=== PATIENT | male | born 1990 | race African-American/Black ===

== ENCOUNTER 2025-02-02 19:40 | Inpatient (IN) | payer OTHER ==
[~2025-02-02] VITALS: Ht 188 cm; Wt 98.9 kg
[2025-02-02] MEDS: SODIUM CHLORIDE 0.9% 1,000 ML IV ONE (01:00)
[2025-02-02] MEDS: PROPRANOLOL HCL 20 MG TAB PO ONE ×2 (01:40→01:44)
--- NOTE | 2025-02-02 20:02 | ED.PDOC ---
HPI Comments 34 year old male came to ER due ti chest pains. Patient has history of Graves disease last 2019, stopped taking methimazole last 2022. For the past month he has been having intermittent epiosdes of palpitations. He was at work earlier, at around 1pm when palpitations worsened, associated with chest pain and nearly had a syncopal attack REVIEW OF SYSTEMS: General: No fever, no chills, or fatigue HEENT: No sore throat, no earache, no congestion, no neck pain. Cardiac: (+) chest pain. (+) palpitations. (+) near syncope Lungs: No shortness of breath, no cough. GI: No nausea, no vomiting, no diarrhea, no constipation, no abdominal pain : No dysuria, frequency, or urgency. No hematuria. Musculoskeletal: No joint pain , no joint swelling, no extremity edema. Skin: No rash, no itching. Neuro: No headache, no dizziness, no weakness PHYSICAL EXAM: General: Awake, alert and oriented. No acute distress. Skin: Skin in warm, dry and intact. Appropriate color for ethnicity. HEENT: The head is normocephalic and atraumatic. Conjunctivae are clear without exudates or hemorrhage. Sclera is non-icteric. EOM are intact. No signs of nystagmus. Eyelids are normal in appearance without swelling or lesions. Oral mucosa is pink and moist Neck: The neck is supple with normal range of motion. No JVD. Cardiac: Heart rate and rhythm are normal. No murmurs, gallops, or rubs are auscultated. Respiratory: No signs of respiratory distress. Lung sounds are clear in all lobes bilaterally without rales, rhonchi, or wheezes. Abdominal: Abdomen is soft, non-tender without distention, guarding or rigidity. Bowel sounds are present and normoactive in all four quadrants. Extremities: Upper and lower extremities are atraumatic in appearance without deformity or edema. Neurological: The patient is awake, alert and oriented to person, place, and time with normal speech. Speech is clear. There is no facial asymmetry. Psychiatric: Appropriate mood and affect. Good judgement and insight. Chief Complaint: Chest Pain Time Seen by MD: 20:02 Reviewed Notes: Nurses Notes Allergies: Coded Allergies: NO KNOWN ALLERGIES (Unverified , 02/02/25) Information Source: Patient Mode of Arrival: Ambulatory Past Medical History PAST MEDICAL HISTORY: Thyroid (Graves disease) Surgical History: Denies all surgeries Family History Family History: Family hx of DM Social History Smoker: Non-Smoker Alcohol: Denies ETOH Use Drugs: Denies Drug Use Lives In: Home EKG EKG : Pulse Rate (adult): 116 Cardiac Rhythm: ST Hypertrophy: LAE Was a procedure done? Was a procedure done?: No CP Differential Dx Differential Diagnosis: Angina, Anxiety / Panic Attack, Electrolyte Disorder, Hyperthyroidism, Hyperventilation, Sinus Tachycardia X-Ray, Labs, Meds, VS Vital Signs Date Time Temp Pulse Resp B/P (MAP) Pulse Ox O2 Delivery O2 Flow Rate FiO2 02/02/25 23:36 98.1 108 16 153/74 (100) 97 98.1 02/02/25 22:55 109 02/02/25 21:01 105 02/02/25 20:02 116 02/02/25 19:43 98.1 116 18 146/88 99 98.1 02/02/25 01:44 103 120/54 02/02/25 01:40 107 120/57 Lab Test 02/02/25 22:52 02/02/25 19:57 Range/Units Troponin I High Sensitivity 137 *H 152 *H </=54 ng/L White Blood Count 14.0 H 4.4-10.8 10^3/uL Red Blood Count 4.78 4.5-5.90 10^6/uL Hemoglobin 13.4 L 13.5-17.5 g/dL Hematocrit 39.6 L 41.0-53.0 % Mean Corpuscular Volume 83.0 80.0-100.0 fL Mean Corpuscular Hemoglobin 28.0 28.0-32.0 pg Mean Corpuscular Hemoglobin Concent 33.8 32.0-36.0 g/dL Red Cell Distribution Width 12.0 11.8-14.3 % Platelet Count 262 140-450 10^3/uL Mean Platelet Volume 9.8 6.9-10.8 fL Neutrophils (%) (Auto) 65.7 37.0-80.0 % Lymphocytes (%) (Auto) 21.9 10.0-50.0 % Monocytes (%) (Auto) 11.7 0.0-12.0 % Eosinophils (%) (Auto) 0.4 0.0-7.0 % Basophils (%) (Auto) 0.3 0.0-2.0 % Neutrophils # (Auto) 9.2 H 1.6-8.6 10 ^3/uL Lymphocytes # (Auto) 3.1 0.4-5.4 10 ^3/uL Monocytes # (Auto) 1.6 H 0-1.3 10 ^3/uL Eosinophils # (Auto) 0.1 0-0.8 10 ^3/uL Basophils # (Auto) 0 0-0.2 10 ^3/uL Nucleated Red Blood Cells 0.2 % D-Dimer, Quantitative 0.34 0.0-0.49 mg/L FEU Sodium Level 139 136-145 mmol/L Potassium Level 3.9 3.5-5.1 mmol/L Chloride Level 103 98-107 mmol/L Carbon Dioxide Level 25 20-31 mmol/L Anion Gap 11 5-15 Blood Urea Nitrogen 15 9-23 mg/dL Creatinine 1.17 0.700-1.30 mg/dL Glomerular Filtration Rate Calc 85 >90 mL/min BUN/Creatinine Ratio 12.8 10.0-20.0 Serum Glucose 88 74-106 mg/dL Calcium Level 9.9 8.7-10.4 mg/dL B-Type Natriuretic Peptide 15.05 0-100 pg/mL Thyroid Stimulating Hormone (TSH) 0.01 L 0.55-4.78 uIU/mL Free Thyroxine (T4) Calculated 5.36 H 0.89-1.76 ng/dL Total Triiodothyronine (TT3) 5.04 H 0.60-1.81 ng/mL Current Medications Medications (Trade) Dose Ordered Sig/Uday Route Start Time Stop Time Status Last Admin Sodium Chloride 1,000 ml @ 1,000 mls/hr Q1H ONCE IV 02/02/25 20:15 02/02/25 21:14 DC 02/02/25 01:00 Aspirin 324 mg ONCE ONCE PO 02/02/25 22:30 02/02/25 22:31 DC 02/02/25 01:50 PROCEDURE(s): CXR1 - CHEST XRAY 1 VIEW REASON: cp ORDER NUMBER(s): [id number], ACCESSION NUMBER(s): [id number] CLINICAL HISTORY: cp TECHNIQUE: Single view of the chest was obtained. COMPARISON: None FINDINGS: The heart size and pulmonary vasculature are normal. The lungs are clear. IMPRESSION: NO ACUTE CARDIOPULMONARY PROCESS. Time of 1ST Reevaluation: 19:58 Reevaluation 1ST: Unchanged Patient Education/Counseling: Need For Follow Up Family Education/Counseling: No Family Present SEPSIS Sepsis Screen Date sepsis recognized/suspect: Feb 02, 2025 Time Sepsis recognized/suspect: 1946 Recent Procedure: No On Antibiotic Therapy: No Respiratory Rate >20: No Heart Rate >90: No Temp<36 C (96.8 F) or >38.3 C: No SBP <90 or MAP <65 mmHG: No New Acute Mental Status Change: No Is the patient on CPAP, BIPAP,: No Physician Orders Urinalysis (02/02/25 20:00) Electrocardigram (02/02/25 20:01) Chest Xray 1 View (02/02/25 20:01) Vital Signs Q1HR (02/02/25 20:01) Saline Lock (02/02/25 20:01) Technical Expert (02/02/25 ) Vital Signs Date Time Temp Pulse Resp B/P (MAP) Pulse Ox O2 Delivery O2 Flow Rate FiO2 02/02/25 23:36 98.1 108 16 153/74 (100) 97 98.1 02/02/25 22:55 109 02/02/25 21:01 105 02/02/25 20:02 116 02/02/25 19:43 98.1 116 18 146/88 99 98.1 02/02/25 01:44 103 120/54 02/02/25 01:40 107 120/57 Laboratory Tests Test 02/02/25 19:57 White Blood Count 14.0 10^3/uL (4.4-10.8) H Medications Medications Dose Ordered Sig/Uday Route Start Time Stop Time Status Last Admin Dose Admin Aspirin 324 mg ONCE ONCE PO 02/02/25 22:30 02/02/25 22:31 DC 02/02/25 01:50 Sodium Chloride 1,000 ml @ 1,000 mls/hr Q1H ONCE IV 02/02/25 20:15 02/02/25 21:14 DC 02/02/25 01:00 Departure 1 Departure Time of Disposition: 22:30 Impression: Primary Impression: Chest pain Additional Impressions: Elevated troponin Palpitations Disposition: ADMITTED INPATIENT Condition: Stable Comments 34-year-old male with a palpitations, chest pain History of Graves disease Troponin elevated Patient is stabilized in the ED. Patient admitted to hospitalist service for further treatment, evaluation and monitoring. Critical Care Note Critical Care Time?: Yes (35 min-critical care time only) Critical care comment: palpitations Stability Stability form required: No Heart Score Heart Score: Heart Score Response (Comments) Value History Moderate Suspicious 1 EKG Repolarization Disturb 1 Age <45 0 Risk Factors No known risk factors 0 Troponin Normal limit 0 Total 2 I personally scribed for JI VAZQUEZ MD ([email or web address]) on 02/02/25 at 20:02. Electronically submitted by Remigio Gonzales ([email or web address]). I personally scribed for JI VAZQUEZ MD ([email or web address]) on 02/02/25 at 20:52. Electronically submitted by Remigio Gonzales ([email or web address]). JI VAZQUEZ MD Feb 02, 2025 20:02
[2025-02-02 20:21] LABS: Hematocrit 39.6 % (41.0-53.0); Hemoglobin 13.4 g/dL (13.5-17.5); Mean Corpuscular Hemoglobin 28.0 pg (28.0-32.0); Mean Corpuscular Volume 83.0 fL (80.0-100.0); Nucleated Red Blood Cells % 0.2 %
[2025-02-02 20:25] LABS: Chloride 103 mmol/L (98-107); Potassium 3.9 mmol/L (3.5-5.1); Sodium 139 mmol/L (136-145)
[2025-02-02 20:26] LABS: Anion Gap 11 (5-15); Calcium 9.9 mg/dL (8.7-10.4); Carbon Dioxide 25 mmol/L (20-31)
[2025-02-02 20:31] LABS: BUN/Creatinine Ratio 12.8 (10.0-20.0); Blood Urea Nitrogen 15 mg/dL (9-23); Glucose 88 mg/dL (74-106)
--- NOTE | 2025-02-02 20:44 | DVH ---
CLINICAL HISTORY: cp TECHNIQUE: Single view of the chest was obtained. COMPARISON: None FINDINGS: The heart size and pulmonary vasculature are normal. The lungs are clear. IMPRESSION: NO ACUTE CARDIOPULMONARY PROCESS.
[2025-02-02] MEDS ORDERED: NITROGLYCERIN 0.4 MG SL TAB SL PRN (23:45)
[2025-02-02] MEDS ORDERED: ONDANSETRON HCL 4 MG/2 ML VIAL IV PRN (23:45)
[2025-02-03] VITALS (11 sets, daily range): BP systolic 129–145; BP diastolic 58–79; PULSE 98–110; RESP 16–20; TEMP 97.6–98.8; O2SAT 97–100
[2025-02-03 00:14] LABS: Free T4 (Free Thyroxine) 5.36 ng/dL (0.89-1.76)
--- NOTE | 2025-02-03 00:15 | DVHHPRES ---
History of Present Illness Resident Creating Document: VENTURA KABA History of Present Illness Patient is a 34-year-old male, with past medical history of Graves disease (diagnosed in 2019, discontinued methimazole in 2022), presented to [facility] ED with complaint of chest pain and palpitations. Chest pain began on December 20, described as sharp, intermittent, rated 8/10 in intensity, and improves with rest. Patient reports several months of intermittent palpitations and chest discomfort, which have worsened over the past few days. Earlier today around 1 PM, while working outdoors in [place] under hot weather conditions, he experienced a sudden episode of heart racing and near-syncope, accompanied by chest pain. On evaluation in the ED, patient is afebrile, blood pressure is 146/88 mmHg. Initial labs show Troponin 152 and TSH 0.01. EKG shows sinus tachycardia. Chest X-ray shows no acute cardiopulmonary process . Patient is admitted for further evaluation and management. Endocrine: Hyperthyroidism Past Surgical History: None Family History: None Smoke: No ALCOHOL: none Drugs: None Review of Systems Review of Systems Eyes: No Pain, No Vision change, No Conjunctivae inflammation, No Eyelid inflammation, No Other, No Redness ENT: No Ear pain, No Ear discharge, No Nose pain, No Nose discharge, No Nose congestion, No Mouth pain, No Mouth swelling, No Throat pain, No Throat swelling, No Other Cardiovascular: Chest Pain, Palpitations, No Orthopnea, No Paroxysmal No Dyspnea, No Edema, No Lt Headedness, No Other Respiratory: No Cough, No Dry, No Shortness of breath, No SOB with exertion, No Wheezing, No Hemoptysis, No Pleuritic Pain, No Sputum, No Other Gastrointestinal: No Nausea, No Vomiting, No Abdominal Pain, No Diarrhea, No Constipation, No Melena, No Hematochezia, No Other Genitourinary: No Dysuria, No Frequency, No Incontinence, No Hematuria, No Retention, No Other Musculoskeletal: No other, No neck pain, No shoulder pain, No arm pain, No back pain, No hand pain, No leg pain, No foot pain Skin: No Rash, No Lesions, No Jaundice, No Bruising, No Other Allergies: Coded Allergies: NO KNOWN ALLERGIES (Unverified , 02/02/25) Medications Current Medications Medications Dose Ordered Sig/Uday Route Start Time Stop Time Status Last Admin Dose Admin Sodium Chloride 10 ml Q8HR IV 02/03/25 06:00 Ondansetron HCl 4 mg Q4HP PRN IV 02/02/25 23:45 Nitroglycerin 0.4 mg Q5MINP PRN SL 02/02/25 23:45 Propranolol HCl 20 mg BID PO 02/03/25 10:00 Exam Vital Signs Vital Signs Date Time Temp Pulse Resp B/P (MAP) Pulse Ox O2 Delivery O2 Flow Rate FiO2 02/02/25 23:36 98.1 108 16 153/74 (100) 97 98.1 Exam General Appearance: Cooperative. Well developed. Well nourished. NAD Head Exam: Normal inspection Neck Exam: Normal inspection. Non-tender. Normal alignment Pulmonary/Respiratory: Chest non-tender. Clear bilateral breath sounds, no crackles, no wheezing. Cardiovascular/Chest: Regular rate and rhythm. No murmurs. No JVD. Peripheral Pulses: 2+ Radial (R). 2+ Radial (L). 2+ Pedal (R). 2+ Pedal (L) Abdominal Exam: Normal bowel sounds. Soft. normal abdomen, no visible veins, Nontender. No hepatospenomegaly. No masses Ankle Exam: Negative ankle edema Lower extremities: Negative lower extremity edema Neuro/Mental Status: A&O x4. Coherent. Thoughts/Psych: Normal thought pattern. Appropriate mood and affect. Good judgement and insight Skin Exam: Normal inspection. Normal color. Warm. Dry Labs/Xrays Labs Test 02/02/25 23:43 02/02/25 19:57 Range/Units White Blood Count 14.0 H 4.4-10.8 10^3/uL Red Blood Count 4.78 4.5-5.90 10^6/uL Hemoglobin 13.4 L 13.5-17.5 g/dL Hematocrit 39.6 L 41.0-53.0 % Mean Corpuscular Volume 83.0 80.0-100.0 fL Mean Corpuscular Hemoglobin 28.0 28.0-32.0 pg Mean Corpuscular Hemoglobin Concent 33.8 32.0-36.0 g/dL Red Cell Distribution Width 12.0 11.8-14.3 % Platelet Count 262 140-450 10^3/uL Mean Platelet Volume 9.8 6.9-10.8 fL Neutrophils (%) (Auto) 65.7 37.0-80.0 % Lymphocytes (%) (Auto) 21.9 10.0-50.0 % Monocytes (%) (Auto) 11.7 0.0-12.0 % Eosinophils (%) (Auto) 0.4 0.0-7.0 % Basophils (%) (Auto) 0.3 0.0-2.0 % Neutrophils # (Auto) 9.2 H 1.6-8.6 10 ^3/uL Lymphocytes # (Auto) 3.1 0.4-5.4 10 ^3/uL Monocytes # (Auto) 1.6 H 0-1.3 10 ^3/uL Eosinophils # (Auto) 0.1 0-0.8 10 ^3/uL Basophils # (Auto) 0 0-0.2 10 ^3/uL Nucleated Red Blood Cells 0.2 % D-Dimer, Quantitative 0.34 0.0-0.49 mg/L FEU Sodium Level 139 136-145 mmol/L Potassium Level 3.9 3.5-5.1 mmol/L Chloride Level 103 98-107 mmol/L Carbon Dioxide Level 25 20-31 mmol/L Anion Gap 11 5-15 Blood Urea Nitrogen 15 9-23 mg/dL Creatinine 1.17 0.700-1.30 mg/dL Glomerular Filtration Rate Calc 85 >90 mL/min BUN/Creatinine Ratio 12.8 10.0-20.0 Serum Glucose 88 74-106 mg/dL Calcium Level 9.9 8.7-10.4 mg/dL B-Type Natriuretic Peptide 15.05 0-100 pg/mL Thyroid Stimulating Hormone (TSH) 0.01 L 0.55-4.78 uIU/mL SEPSIS Sepsis Screen Date sepsis recognized/suspect: Feb 02, 2025 Time Sepsis recognized/suspect: 1946 Recent Procedure: No On Antibiotic Therapy: No Respiratory Rate >20: No Heart Rate >90: No Temp<36 C (96.8 F) or >38.3 C: No SBP <90 or MAP <65 mmHG: No New Acute Mental Status Change: No Is the patient on CPAP, BIPAP,: No Physician Orders Urinalysis (02/02/25 20:00) Electrocardigram (02/02/25 20:01) Chest Xray 1 View (02/02/25 20:01) Vital Signs Q1HR (02/02/25 20:01) Saline Lock (02/02/25 20:01) Nuclear Physics Teacher (02/02/25 ) Troponin-I Hs (02/02/25 23:22) Troponin-I Hs (02/03/25 01:22) Admit (02/02/25 23:40) Allergies (02/02/25 23:40) Code Status (02/02/25 23:40) Sodium Chloride Lock (Saline Lock Ns) (02/03/25 06:00) Ondansetron Hcl (Zofran) (02/02/25 23:45) Complete Blood Count (02/03/25 04:00) Comprehensive Metabolic Panel (02/03/25 04:00) Cardiac Diet-2gna,Lofat,Lochol (02/03/25 Breakfast) Echo 2d Mode Cardiac Dop (02/02/25 23:40) Condition: Fair (02/02/25 23:40) Nitroglycerin Sublingual (Ntrostat Subli (02/02/25 23:45) Stat Ekg For Chest Pain (02/02/25 23:40) Notify Md Of Changes From Base (02/02/25 23:40) Double End Tenoner Setter For 24 Hours (02/02/25 23:40) Emergency Dysrhythmia Protocol (02/02/25 23:40) Rhythm Strips Once Every Shift (02/02/25 23:40) Free T4 (Free Thyroxine) (02/02/25 23:40) T3 Total (02/02/25 23:40) Propranolol Hcl Tablet (Inderal Tablet) (02/03/25 10:00) Drug Screen (02/03/25 00:07) Aspirin Tablet (02/03/25 10:00) Atorvastatin (Lipitor) (02/03/25 00:15) Atorvastatin (Lipitor) (02/03/25 22:00) Lipid Panel (02/03/25 00:07) Magnesium (02/03/25 00:07) Hepatic Panel (02/03/25 00:07) Blood Culture (02/03/25 00:07) Thyrotropin Receptor Antibody (02/03/25 00:07) Vital Signs Date Time Temp Pulse Resp B/P (MAP) Pulse Ox O2 Delivery O2 Flow Rate FiO2 02/02/25 23:36 98.1 108 16 153/74 (100) 97 98.1 02/02/25 21:01 105 02/02/25 20:02 116 02/02/25 19:43 98.1 116 18 146/88 99 98.1 Laboratory Tests Test 02/02/25 19:57 White Blood Count 14.0 10^3/uL (4.4-10.8) H Assessment/Plan Assessment/Plan NSTEMI, likely type II Troponin level, downtrending 152 -> 137 EKG: Sinus tachycardia BNP: 15.05 D-dimer normal Chest X-ray: no acute cardiopulmonary process Echocardiogram pending Magnesium pending Lipid panel Hepatic panel nitroglycerin sublingual 0.4 mg Zofran 4 mg IV q4h Saline 10 ML IV q8h Aspirin 81 MG p.o. Atorvastatin 40 mg p.o. Graves disease Hyperthyroidism, uncontrolled TSH 0.01 Total T3, Free T4 pending Methimazole 5 mg p.o. daily Propranolol 20 mg p.o. b.i.d. Blood culture Urine culture Thyrotropin receptor antibody ordered Diet: Cardiac Goals of care: Full code, discussed for >16 minutes on 02/03/25 Plan discussed with patient Plan discussed with Dr. Pike Plan discussed with: Patient, Other (RN) My Orders Orders - VENTURA KABA Procedure Category Date Status Time Admit ADMIT 02/02/25 Transmitted 23:40 Allergies LIYAH 02/02/25 In Process 23:40 Code Status CODE 02/02/25 Transmitted 23:40 Sodium Chloride Lock PHA 02/03/25 In Process (Saline Lock Ns) 06:00 Ondansetron Hcl PHA 02/02/25 In Process (Zofran) 23:45 Complete Blood Count LAB 02/03/25 Logged 04:00 Comprehensive LAB 02/03/25 Logged Metabolic Panel 04:00 Cardiac DIET 02/03/25 Transmitted Diet-2gna,Lofat,Lochol Breakfast Echo 2d Mode Cardiac US 02/02/25 Logged DOP 23:40 Condition: Fair LIYAH 02/02/25 In Process 23:40 Nitroglycerin PHA 02/02/25 In Process Sublingual (Ntrostat 23:45 Stat Ekg For Chest LIYAH 02/02/25 In Process Pain 23:40 Notify Of Changes LIYAH 02/02/25 In Process From Base 23:40 Double End Tenoner Setter For LIYAH 02/02/25 In Process 24 Hours 23:40 Emergency Dysrhythmia LIYAH 02/02/25 In Process Protocol 23:40 Rhythm Strips Once LIYAH 02/02/25 In Process Every Shift 23:40 Free T4 (Free LAB 02/02/25 In Process Thyroxine) 23:40 T3 Total LAB 02/02/25 In Process 23:40 Propranolol Hcl PHA 02/03/25 In Process Tablet (Inderal 10:00 Drug Screen LAB 02/03/25 Transmitted 00:07 Aspirin Tablet PHA 02/03/25 Transmitted 10:00 Atorvastatin (Lipitor) PHA 02/03/25 Transmitted 00:15 Atorvastatin (Lipitor) PHA 02/03/25 Transmitted 22:00 Lipid Panel LAB 02/03/25 Transmitted 00:07 Magnesium LAB 02/03/25 Transmitted 00:07 Hepatic Panel LAB 02/03/25 Transmitted 00:07 Blood Culture BELLE 02/03/25 Transmitted 00:07 Thyrotropin Receptor LAB 02/03/25 Transmitted Antibody 00:07 Date of Service: Feb 03, 2025 Billing Provider: DONY PIKE MD Common Visit Codes: [id number] INP/OBS CARE (HIGH) VENTURA KABA RESIDENT Feb 03, 2025 00:15
[2025-02-03 01:40] LABS: Albumin 4.3 g/dL (3.2-4.8); Alkaline Phosphatase 109.0 U/L (46-116); Magnesium 1.9 mg/dL (1.6-2.6); Total Protein 7.1 g/dL (5.7-8.2); Triglycerides 104.0 mg/dL (< 150)
[2025-02-03 01:41] LABS: Bilirubin, Total 1.1 mg/dL (0.2-1.0); Cholesterol 97.0 mg/dL (< 200)
[2025-02-03 01:45] LABS: Alanine Aminotransferase 67.0 U/L (7-40); Bilirubin, Direct 0.4 mg/dL (<0.3); HDL Cholesterol 37.0 mg/dL (40-59)
[2025-02-03] MEDS: ATORVASTATIN 20 MG TAB PO ONE (01:50)
[2025-02-03] MEDS: methIMAzole 5 MG TAB PO ONE (02:31)
[2025-02-03 03:58] LABS: Urine Protein, UAD Negative (Negative)
[2025-02-03 04:00] LABS: Amphetamine Screen, Urine Neg (NEGATIVE); Barbiturate Scree,Urine Neg (NEGATIVE); Benzodiazephine Screen, Urine Neg (NEGATIVE); Cannabinoid Screen, Urine Neg (NEGATIVE); Cocaine Screen, Urine Neg (NEGATIVE); Opiate Scree,Urine Neg (NEGATIVE); Phencyclidine Screen, Urine Neg (NEGATIVE)
[2025-02-03 04:58] LABS: Albumin 3.7 g/dL (3.2-4.8); Alkaline Phosphatase 105 U/L (46-116); Anion Gap 9 (5-15); BUN/Creatinine Ratio 15.4 (10.0-20.0); Bilirubin, Total 1.0 mg/dL (0.2-1.0); Blood Urea Nitrogen 16 mg/dL (9-23); Calcium 9.4 mg/dL (8.7-10.4); Carbon Dioxide 26 mmol/L (20-31); Chloride 105 mmol/L (98-107); Glucose 102 mg/dL (74-106); Potassium 4.1 mmol/L (3.5-5.1); Sodium 140 mmol/L (136-145); Total Protein 6.3 g/dL (5.7-8.2)
[2025-02-03 05:00] LABS: Hematocrit 38.5 % (41.0-53.0); Hemoglobin 12.9 g/dL (13.5-17.5); Mean Corpuscular Hemoglobin 28.1 pg (28.0-32.0); Mean Corpuscular Volume 83.9 fL (80.0-100.0); Nucleated Red Blood Cells % 0.1 %
[2025-02-03 05:07] LABS: Alanine Aminotransferase 59 U/L (7-40)
[2025-02-03] MEDS: SODIUM CHLOR 0.9% PF (SALINE LOCK) 10ML VIAL/SYR IV SCH (05:47)
[2025-02-03] MEDS: PROPRANOLOL HCL 20 MG TAB PO SCH ×2 (09:03→21:49)
--- NOTE | 2025-02-03 09:27 | DVH ---
INDICATION: transaminitis TECHNIQUE: Multiple real-time sonographic images were obtained of the right upper quadrant. COMPARISON: None FINDINGS: The liver demonstrates homogenous echotexture without focal mass lesions. The liver measure s 15 cm. There is no intrahepatic or extrahepatic ductal dilatation. The common duct measures 0.4 mm. The gallbladder is without evidence of stone or sludge. The gallbladder wall measures 0.3mm and is within normal limits. The right kidney measures 10 cm. The right kidney is normal in contour, size, and shape. The echog enicity is normal. There is no hydronephrosis. The pancreas is not well visualized due to overlying bowel gas. IMPRESSION: No sonographic evidence of gallstones or acute cholecystitis.
[2025-02-03] MEDS: methIMAzole 5 MG TAB PO SCH ×2 (10:48→16:13)
[2025-02-03 12:07] LABS: Hepatitis B Surface Antigen Negative (Negative); Hepatitis C Antibody Negative (Negative)
--- NOTE | 2025-02-03 14:39 | DVHPNRES ---
Progress Note Date Seen: Feb 03, 2025 Resident Creating Document: DONTE CALDWELL RESIDENT Medical Necessity Reason Pt with a Central, PICC or Fol: No Subjective Review of Systems Brief history on admission: This is a 34-year-old male, with past medical history of Graves disease (diagnosed in 2019, discontinued methimazole in 2022), presented to [facility] ED with complaint of chest pain and palpitations. Chest pain began on December 20, described as sharp, intermittent, rated 8/10 in intensity, and improves with rest. Patient reports several months of intermittent palpitations and chest discomfort, which have worsened over the past few days. His symptoms exacerbated while working outdoors in [place] under hot weather conditions, he experienced a sudden episode of heart racing and near-syncope, accompanied by chest pain. On evaluation in the ED, patient is afebrile, blood pressure is 146/88 mmHg. Initial labs show Troponin 152 and TSH 0.01. EKG shows sinus tachycardia. Chest X-ray shows no acute cardiopulmonary process . Patient is admitted for further evaluation and management. PMHx: Hyperthyroidism PSHx: No significant surgical history Social history: Denies smoking, alcohol, recreational drug use. Full code. Home medication: None Allergic history: No known allergies ROS: Constitutional: Denies weight loss, fever and chills. HEENT: Denies changes in vision and hearing. Respiratory: Denies shortness of breath and cough Cardiovascular: Chest pain, palpitations GI: Denies abdominal pain, nausea, vomiting and diarrhea. : Denies dysuria and urinary frequency. Musculoskeletal: Denies myalgias and joint pain Skin: Denies rash and pruritus. Neurological: Denies dizziness, headache, vision or hearing problems 02/03/2025: Patient was examined at bedside today. Patient has sinus tachycardia, currently being monitored on telemetry. Objective vital signs Vital Sign Date Time Temp Pulse Resp B/P (MAP) Pulse Ox O2 Delivery O2 Flow Rate FiO2 02/03/25 12:53 98.5 101 18 130/64 (86) 98 98.5 02/03/25 02:36 Room Air* 0 21 Total Intake and Output 02/02/25 02/02/25 02/03/25 15:00 23:00 07:00 Intake Total 200 ml Balance 200 ml medications Current Medications Medications Dose Ordered Sig/Uday Route Start Time Stop Time Status Last Admin Dose Admin Sodium Chloride 10 ml Q8HR IV 02/03/25 06:00 02/03/25 05:47 10 ML Ondansetron HCl 4 mg Q4HP PRN IV 02/02/25 23:45 Nitroglycerin 0.4 mg Q5MINP PRN SL 02/02/25 23:45 Propranolol HCl 20 mg BID PO 02/03/25 10:00 02/03/25 09:03 20 MG Aspirin 81 mg DAILY PO 02/03/25 10:00 02/03/25 09:02 81 MG Atorvastatin Calcium 40 mg HS PO 02/03/25 22:00 Methimazole 10 mg TID PO 02/03/25 14:00 Examination General: Patient alert and oriented in person, place and time. Patient following commands. HEENT: Normocephalic, atraumatic, moist mucous membranes Respiratory/pulmonary: Clear lungs bilaterally, vesicular murmurs present in almost all lung patel, no associated crackles or wheezes. Cardiovascular: Tachycardia. Normal heart sounds S1 and S2 with no associated murmurs Abdomen: Abdomen nondistended, there is no pain to palpation in any of the abdominal quadrants, no palpable masses. Extremities: There is no peripheral edema present at the lower extremities. Peripheral Pulses: 3+ Radial (R). 3+ Radial (L). 3+ Dorsalis pedis (R). 3+ Dorsalis pedis(L) Skin: No rashes or pruritus, there is no sacral edema present at this time. Neurological: Intact cranial nerves with no focal neurologic deficits laboratory and microbiology Laboratory Tests 02/03/25 04:12 Test 02/03/25 04:12 Range/Units Serum Glucose 102 74-106 mg/dL Problem List/Assessment/Plan Problem List/Assessment/Plan Thyrotoxicosis, secondary to Graves disease BWPS score 5 TSH 0.01, high Total T3, Free T4 Methimazole 10 mg PO TID Propranolol 20 mg p.o. b.i.d. Blood culture, urine culture Thyrotropin receptor antibody pending NSTEMI, likely type II due to hypothyroidism Troponin level, downtrending 152 -> 137 EKG: Sinus tachycardia BNP: 15.05 D-dimer normal Chest X-ray: no acute cardiopulmonary process Echocardiogram pending Nitroglycerin sublingual 0.4 mg Zofran 4 mg IV q4h Aspirin 81 MG p.o. Atorvastatin 40 mg p.o. Transaminitis Low HDL Elevated T total bilirubin, ALT Liver ultrasound shows no acute abnormality Hepatitis panel negative DIET: Cardiac DVT PROPHYLAXIS: Ambulatory CODE STATUS: Goals of care discussed with patient at bedside for more than 16 minutes. Full code DISPOSITION: Telemetry This medical document was created using an electronic medical record system with [employer] direct computerized dictation system. Although this document has been carefully reviewed, there may still be some phonetic and typographical errors. These areas are purely typographical due to imperfections of the software programs, and do not reflect any compromise in the patient's medical care. Patient's status and plan discussed with the patient. Case discussed with Dr. Pretty Plan discussed with: Patient, Other (Nurses) My Orders My Orders Orders - DONTE CALDWELL Procedure Category Date Status Time LIVER US 02/03/25 Resulted 06:41 Date of Service: Feb 03, 2025 Billing Provider: AILIN PRETTY MD Common Visit Codes: [id number] INP/OBS CARE(HIGH) DONTE CALDWELL RESIDENT Feb 03, 2025 14:39
[2025-02-03] MEDS: ATORVASTATIN 20 MG TAB PO SCH (21:47)
[2025-02-04] VITALS (8 sets, daily range): BP systolic 107–147; BP diastolic 63–80; PULSE 86–102; RESP 18–20; TEMP 97.5–99; O2SAT 95–100
[2025-02-04 07:28] LABS: Hematocrit 39.6 % (41.0-53.0); Hemoglobin 13.5 g/dL (13.5-17.5); Mean Corpuscular Hemoglobin 28.4 pg (28.0-32.0); Mean Corpuscular Volume 83.1 fL (80.0-100.0); Nucleated Red Blood Cells % 0.1 %
[2025-02-04 07:51] LABS: Albumin 3.9 g/dL (3.2-4.8); Alkaline Phosphatase 111 U/L (46-116); Anion Gap 11 (5-15); BUN/Creatinine Ratio 8.8 (10.0-20.0); Blood Urea Nitrogen 9 mg/dL (9-23); Calcium 9.9 mg/dL (8.7-10.4); Carbon Dioxide 28 mmol/L (20-31); Chloride 103 mmol/L (98-107); Glucose 87 mg/dL (74-106); Potassium 3.8 mmol/L (3.5-5.1); Sodium 142 mmol/L (136-145)
[2025-02-04 07:52] LABS: Total Protein 6.7 g/dL (5.7-8.2)
[2025-02-04 07:54] LABS: Alanine Aminotransferase 63 U/L (7-40); Bilirubin, Total 1.3 mg/dL (0.2-1.0)
--- NOTE | 2025-02-04 09:16 | DVHINCON2 ---
Date of service: Feb 03, 2025 History of Present Illness 34yo M w/ hx of Graves' disease who presented to the hospital with chest pain and dyspnea. Patient remarks prior hx of Graves' disease diagnosed in 2019 at [facility] via his PCP. Had been maintained onMMI therapy for about 3 years and eventually discontinued to do biochemical and symptomatic remission. He states he was followed intermittently to monitor his TFTs. Upon presentation patient tachycardic to HR 100s, sinus rhythm. BP 146/88. Labs notable for trop 152, TSH 0.01. CXR neg. Past Medical History Problems Medical Problems: (1) Chest pain Status: Acute (2) Elevated troponin Status: Acute (3) Palpitations Status: Acute Past Surgical History Past Surgical History Medical Problems: (1) Chest pain Status: Acute (2) Elevated troponin Status: Acute (3) Palpitations Status: Acute Family History: Diabetes mellitus G8 BROTHER G8 BROTHER grandmother Allergies: Coded Allergies: NO KNOWN ALLERGIES (Unverified , 02/02/25) Current Medications Current Medications Medications (Trade) Dose Ordered Sig/Uday Route PRN Reason Start Time Stop Time Status Last Admin Propranolol HCl (Inderal Tablet) 20 mg BID PO 02/03/25 10:00 02/03/25 17:57 DC 02/03/25 09:03 Aspirin 81 mg DAILY PO 02/03/25 10:00 02/03/25 09:02 Atorvastatin Calcium (Lipitor) 40 mg HS PO 02/03/25 22:00 02/03/25 21:47 Methimazole (Tapazole) 5 mg DAILY PO 02/04/25 10:00 02/03/25 08:59 DC Methimazole (Tapazole) 20 mg DAILY PO 02/03/25 10:00 02/03/25 11:01 DC 02/03/25 10:48 Methimazole (Tapazole) 10 mg TID PO 02/03/25 14:00 02/04/25 05:40 Propranolol HCl (Inderal Tablet) 20 mg TID PO 02/03/25 22:00 02/04/25 05:39 Review of Systems Negative except that which is stated in HPI Vital Signs Vital Signs Date Time Temp Pulse Resp B/P (MAP) Pulse Ox O2 Delivery O2 Flow Rate FiO2 02/04/25 08:31 97.8 97 20 132/80 (97) 97 97.8 10/24/25 20:00 Room Air* 0 21 Physical Exam Gen - no acute distress HEENT - no thyromegaly CV - tachycardic, nl rhythm Resp - CTAB Ext - no edema Neuro - no tremors Labs/Diagnostic Data Labs Test 02/04/25 05:11 02/03/25 04:12 02/03/25 00:50 02/03/25 00:40 Range/Units White Blood Count 5.8 # 4.4-10.8 10^3/uL Red Blood Count 4.77 4.5-5.90 10^6/uL Hemoglobin 13.5 13.5-17.5 g/dL Hematocrit 39.6 L 41.0-53.0 % Mean Corpuscular Volume 83.1 80.0-100.0 fL Mean Corpuscular Hemoglobin 28.4 28.0-32.0 pg Mean Corpuscular Hemoglobin Concent 34.1 32.0-36.0 g/dL Red Cell Distribution Width 11.9 11.8-14.3 % Platelet Count 234 140-450 10^3/uL Mean Platelet Volume 10.2 6.9-10.8 fL Neutrophils (%) (Auto) 44.3 37.0-80.0 % Lymphocytes (%) (Auto) 39.4 10.0-50.0 % Monocytes (%) (Auto) 14.3 H 0.0-12.0 % Eosinophils (%) (Auto) 1.6 0.0-7.0 % Basophils (%) (Auto) 0.4 0.0-2.0 % Neutrophils # (Auto) 2.6 1.6-8.6 10 ^3/uL Lymphocytes # (Auto) 2.3 0.4-5.4 10 ^3/uL Monocytes # (Auto) 0.8 0-1.3 10 ^3/uL Eosinophils # (Auto) 0.1 0-0.8 10 ^3/uL Basophils # (Auto) 0 0-0.2 10 ^3/uL Nucleated Red Blood Cells 0.1 % Sodium Level 142 136-145 mmol/L Potassium Level 3.8 3.5-5.1 mmol/L Chloride Level 103 98-107 mmol/L Carbon Dioxide Level 28 20-31 mmol/L Anion Gap 11 5-15 Blood Urea Nitrogen 9 9-23 mg/dL Creatinine 1.02 0.700-1.30 mg/dL Glomerular Filtration Rate Calc 100 >90 mL/min BUN/Creatinine Ratio 8.8 L 10.0-20.0 Serum Glucose 87 74-106 mg/dL Calcium Level 9.9 8.7-10.4 mg/dL Total Bilirubin 1.3 H 0.2-1.0 mg/dL Aspartate Amino Transferase (AST) 29 13-40 U/L Alanine Aminotransferase (ALT) 63 H 7-40 U/L Alkaline Phosphatase 111 46-116 U/L Total Protein 6.7 5.7-8.2 g/dL Albumin 3.9 3.2-4.8 g/dL Free Thyroxine (T4) Calculated 4.74 H 0.89-1.76 ng/dL Hepatitis A IgM Antibody Negative Hepatitis B Surface Antigen Negative Negative Hepatitis B Core IgM Antibody Negative Negative Hepatitis C Antibody Negative Negative Magnesium Level 1.9 1.6-2.6 mg/dL Direct Bilirubin 0.4 H <0.3 mg/dL Triglycerides Level 104 < 150 mg/dL Cholesterol Level 97 < 200 mg/dL LDL Cholesterol 44 < 100 mg/dL HDL Cholesterol 37 L 40-59 mg/dL Thyrotropin Receptor Antibody 13.10 H 0.00-1.75 IU/L Urine Color Yellow Yellow Urine Clarity Clear Clear Urine pH 5.5 5.0-9.0 Urine Specific [place] 1.030 1.001-1.035 Urine Protein Negative Negative Urine Ketones Trace Negative Urine Blood Negative Negative /uL Urine Nitrite Negative Negative Urine Bilirubin Negative Negative Urine Urobilinogen Normal Negative mg/dL Urine Leukocyte Esterase Negative Negative /uL Urine RBC 4 0 - 3 /hpf Urine Microscopic WBC < 1 0-3 /HPF Urine Squamous Epithelial Cells None seen <5 /hpf Urine Calcium Oxalate Crystals Few None Seen Urine Bacteria None seen None Seen /hpf Urine Glucose Normal Normal mg/dL Urine Opiates Screen Neg NEGATIVE Urine Fentanyl Screen Neg NEGATIVE Urine Barbiturates Screen Neg NEGATIVE Urine Phencyclidine Screen Neg NEGATIVE Urine Amphetamines Screen Neg NEGATIVE Urine Benzodiazepines Screen Neg NEGATIVE Urine Cocaine Screen Neg NEGATIVE Urine Cannabinoids Screen Neg NEGATIVE Test 02/02/25 23:43 02/02/25 19:57 Range/Units Troponin I High Sensitivity 137 *H </=54 ng/L D-Dimer, Quantitative 0.34 0.0-0.49 mg/L FEU B-Type Natriuretic Peptide 15.05 0-100 pg/mL Thyroid Stimulating Hormone (TSH) 0.01 L 0.55-4.78 uIU/mL Total Triiodothyronine (TT3) 5.04 H 0.60-1.81 ng/mL Microbiology Date/Time Source Procedure Growth Status 02/03/25 00:55 Blood Blood Culture - Preliminary NO GROWTH AFTER 24 HOURS OF INCUBATION. Resulted Assessment # Graves' disease with thyrotoxicosis # Sinus tachycardia # Type II NSTEMI # HTN Hx of Graves' disease diagnosed reportedly in 2019 now relapsed with presentation of thyrotoxicosis without storm. - Methimazole 10mg tid - Propranolol 20mg tid - Free T4 daily - Follow up TRAb - Repeat TSH, free T4 in 4 weeks following discharge Plan discussed with: Patient LOGAN ENCARNACION MD Feb 04, 2025 09:16
[2025-02-04] MEDS ORDERED: methIMAzole 5 MG TAB PO SCH (10:00)
[2025-02-04] MEDS ORDERED: VANCOMYCIN PER PHARMACY 0 MG IV SCH (11:15)
[2025-02-04] MEDS ORDERED: VANCOMYCIN 1GM/250ML KIT 250 ML IV ONE (11:15)
[2025-02-04] MEDS: VANCOMYCIN 1GM/250ML KIT 250 ML IV SCH (12:06)
--- NOTE | 2025-02-04 13:55 | DVHSR ---
APPROVED REPORT EXAM: Two-dimensional and M-mode echocardiogram with Doppler and color Doppler. Blood Pressure: 132/80 mmHg INDICATION Chest Pain RISK FACTORS Height: 6' 2", Weight: 221 DIMENSIONS LVDd4.3 (3.8-5.7cm)LA (2D)4.0 (1.9-4.0cm)Aortic Root2.9 (2.0-3.7cm) LVDs3.1 (2.5-4.0cm)LA (MM) (1.9-4.0cm)Aortic Cusp Exc1.7 (1.5-2.0cm) EF (%) 56.0 (55-70%)Rt. Atrium3.8 (1.9-4.0cm)Asc. Aorta cm IVSd1.1 (0.7-1.1cm)RV (D) (1.8-2.4cm) PWd1.1 (0.7-1.1cm) Mitral Valve MitralMitral Stenosis E wave1.10m/sMV Mean GR.mmHg A wave1.00m/sMV Peak GR.mmHg E/A ratio1.12D MVAcm2 Aortic Valve Aortic ValveAortic Stenosis V11.10m/Leonor Mean GR.4mmHg V21.40m/Leonor Peak GR.8mmHg LVOT Diameter2.3 (1.8-2.4cm)Doppler AVA3.26cm2 Pulmonic Valve V21.10m/s Tricuspid Valve TR Velocity1.60m/s [id number] Conclusion lvef 60% normal rv function normal atria no severe valve abnormalities noted mild MVP, trace to mild mitral regug
--- NOTE | 2025-02-04 15:40 | DVHPNRES ---
Progress Note Date Seen: Feb 04, 2025 Resident Creating Document: ADAMA OLIVEROS RESIDENT Medical Necessity Reason Pt with a Central, PICC or Fol: No Subjective Review of Systems Patient was seen at bedside. No new complaints. Blood culture shows Gram- positive cocci in clusters. This is a 34-year-old male, with past medical history of Graves disease (diagnosed in 2019, discontinued methimazole in 2022), presented to [facility] ED with complaint of chest pain and palpitations. Chest pain began on December 20, described as sharp, intermittent, rated 8/10 in intensity, and improves with rest. Patient reports several months of intermittent palpitations and chest discomfort, which have worsened over the past few days. His symptoms exacerbated while working outdoors in [place] under hot weather conditions, he experienced a sudden episode of heart racing and near-syncope, accompanied by chest pain. On evaluation in the ED, patient is afebrile, blood pressure is 146/88 mmHg. Initial labs show Troponin 152 and TSH 0.01. EKG shows sinus tachycardia. Chest X-ray shows no acute cardiopulmonary process . Patient is admitted for further evaluation and management. PMHx: Hyperthyroidism PSHx: No significant surgical history Social history: Denies smoking, alcohol, recreational drug use. Full code. Home medication: None Allergic history: No known allergies ROS: Constitutional: Denies weight loss, fever and chills. HEENT: Denies changes in vision and hearing. Respiratory: Denies shortness of breath and cough Cardiovascular: Chest pain, palpitations GI: Denies abdominal pain, nausea, vomiting and diarrhea. : Denies dysuria and urinary frequency. Musculoskeletal: Denies myalgias and joint pain Skin: Denies rash and pruritus. Neurological: Denies dizziness, headache, vision or hearing problems Objective vital signs Vital Sign Date Time Temp Pulse Resp B/P (MAP) Pulse Ox O2 Delivery O2 Flow Rate FiO2 02/04/25 13:00 99.0 93 18 146/78 (100) 98 99.0 02/04/25 08:00 Room Air* 0 21 Total Intake and Output 02/03/25 02/03/25 02/04/25 15:00 23:00 07:00 Intake Total 775 ml 700 ml Balance 775 ml 700 ml medications Current Medications Medications Dose Ordered Sig/Uday Route Start Time Stop Time Status Last Admin Dose Admin Sodium Chloride 10 ml Q8HR IV 02/03/25 06:00 02/04/25 05:39 10 ML Ondansetron HCl 4 mg Q4HP PRN IV 02/02/25 23:45 Nitroglycerin 0.4 mg Q5MINP PRN SL 02/02/25 23:45 Aspirin 81 mg DAILY PO 02/03/25 10:00 02/04/25 09:45 81 MG Atorvastatin Calcium 40 mg HS PO 02/03/25 22:00 02/03/25 21:47 40 MG Methimazole 10 mg TID PO 02/03/25 14:00 02/04/25 05:40 10 MG Propranolol HCl 20 mg TID PO 02/03/25 22:00 02/04/25 05:39 20 MG Vancomycin HCl 0 ml @ 0 mls/hr PER PHARMACY IV 02/04/25 11:15 Examination General: Patient alert and oriented in person, place and time. Patient following commands. HEENT: Normocephalic, atraumatic, moist mucous membranes Respiratory/pulmonary: Clear lungs bilaterally, vesicular murmurs present in almost all lung patel, no associated crackles or wheezes. Cardiovascular: Tachycardia. Normal heart sounds S1 and S2 with no associated murmurs Abdomen: Abdomen nondistended, there is no pain to palpation in any of the abdominal quadrants, no palpable masses. Extremities: There is no peripheral edema present at the lower extremities. Peripheral Pulses: 3+ Radial (R). 3+ Radial (L). 3+ Dorsalis pedis (R). 3+ Dorsalis pedis(L) Skin: No rashes or pruritus, there is no sacral edema present at this time. Neurological: Intact cranial nerves with no focal neurologic deficits laboratory and microbiology Laboratory Tests 02/04/25 05:11 Test 02/04/25 05:11 Range/Units Serum Glucose 87 74-106 mg/dL Microbiology Date/Time Source Procedure Growth Status 02/03/25 00:55 Blood Blood Culture - Preliminary NO GROWTH AFTER 24 HOURS OF INCUBATION. Resulted Problem List/Assessment/Plan Problem List/Assessment/Plan Assessment and plan Thyrotoxicosis, secondary to Graves disease BWPS score 5 TSH 0.01, high Total T3, Free T4 Methimazole 10 mg PO TID Propranolol 20 mg p.o. b.i.d. Blood culture, urine culture Thyrotropin receptor antibody pending NSTEMI, likely type II due to hypothyroidism Troponin level, downtrending 152 -> 137 EKG: Sinus tachycardia BNP: 15.05 D-dimer normal Chest X-ray: no acute cardiopulmonary process Echocardiogram pending Nitroglycerin sublingual 0.4 mg Zofran 4 mg IV q4h Aspirin 81 MG p.o. Atorvastatin 40 mg p.o. Transaminitis Low HDL Elevated T total bilirubin, ALT Liver ultrasound shows no acute abnormality Hepatitis panel negative Bacteremia, source unidentified IV vancomycin Echo MRSA nares DIET: Cardiac DVT PROPHYLAXIS: Ambulatory CODE STATUS: Goals of care discussed with patient at bedside for more than 16 minutes. Full code Patient's status and plan discussed with the patient. Case discussed with Dr. Pretty Plan discussed with: Patient Plan discussed with: Patient My Orders My Orders Orders - ADAMA OLIVEROS Procedure Category Date Status Time Vancomycin Per PHA 02/04/25 In Process Pharmacy 11:15 Complete Blood Count LAB 02/05/25 Verified 04:00 Creatinine LAB 02/05/25 Verified 04:00 Vancomycin,Random LAB 02/05/25 Verified 04:00 Date of Service: Feb 04, 2025 Billing Provider: AILIN PRETTY MD Common Visit Codes: [id number] INP/OBS CARE(HIGH) ADAMA OLIVEROS Feb 04, 2025 15:40
[2025-02-05] VITALS (8 sets, daily range): BP systolic 122–156; BP diastolic 58–84; PULSE 76–103; RESP 18–20; TEMP 97.5–98.9; O2SAT 97–98
[2025-02-05 06:15] LABS: Hematocrit 47.8 % (41.0-53.0); Hemoglobin 16.4 g/dL (13.5-17.5); Mean Corpuscular Hemoglobin 28.3 pg (28.0-32.0); Mean Corpuscular Volume 82.5 fL (80.0-100.0); Nucleated Red Blood Cells % 0.2 %
[2025-02-05 07:13] LABS: Albumin 4.4 g/dL (3.2-4.8); Anion Gap 11 (5-15); BUN/Creatinine Ratio 16.5 (10.0-20.0); Blood Urea Nitrogen 18 mg/dL (9-23); Carbon Dioxide 28 mmol/L (20-31); Chloride 100 mmol/L (98-107); Glucose 93 mg/dL (74-106); Potassium 3.9 mmol/L (3.5-5.1); Sodium 139 mmol/L (136-145); Total Protein 7.3 g/dL (5.7-8.2)
[2025-02-05 07:17] LABS: Alanine Aminotransferase 63 U/L (7-40); Alkaline Phosphatase 137 U/L (46-116); Bilirubin, Total 1.5 mg/dL (0.2-1.0); Calcium 11.0 mg/dL (8.7-10.4); Lipase 100 U/L (12-53)
[2025-02-05] MEDS: VANCOMYCIN 1.25GM/250ML 250 ML IV SCH (10:43)
--- NOTE | 2025-02-05 12:04 | DVHPN2 ---
Progress Note - Dictate Date Seen: Feb 05, 2025 Medical Necessity Reason Pt with a Central, PICC or Fol: No Subjective Denies any acute symptoms or complaints. vital signs Vital Sign Date Time Temp Pulse Resp B/P (MAP) Pulse Ox O2 Delivery O2 Flow Rate FiO2 02/05/25 08:46 98.3 76 18 147/75 (99) 97 98.3 02/05/25 08:00 Room Air* 0 21 Total Intake and Output 02/04/25 02/04/25 02/05/25 15:00 23:00 07:00 Intake Total 250 ml 700 ml 600 ml Balance 250 ml 700 ml 600 ml medications Current Medications Medications Dose Ordered Sig/Uday Route Start Time Stop Time Status Last Admin Dose Admin Sodium Chloride 10 ml Q8HR IV 02/03/25 06:00 02/05/25 05:36 10 ML Ondansetron HCl 4 mg Q4HP PRN IV 02/02/25 23:45 Nitroglycerin 0.4 mg Q5MINP PRN SL 02/02/25 23:45 Aspirin 81 mg DAILY PO 02/03/25 10:00 02/05/25 09:32 81 MG Atorvastatin Calcium 40 mg HS PO 02/03/25 22:00 02/04/25 21:13 40 MG Methimazole 10 mg TID PO 02/03/25 14:00 02/05/25 05:33 10 MG Propranolol HCl 20 mg TID PO 02/03/25 22:00 02/05/25 05:34 20 MG Vancomycin HCl 0 ml @ 0 mls/hr PER PHARMACY IV 02/04/25 11:15 Vancomycin HCl 250 ml @ 200 mls/hr Q12H IV 02/05/25 11:00 02/05/25 10:43 200 MLS/HR objective Gen - no acute distress HEENT - no thyromegaly CV - RRR, no m/r/g Resp - CTAB Ext - no edema laboratory and microbiology Laboratory Tests 02/05/25 05:33 Test 02/05/25 05:33 Range/Units Serum Glucose 93 74-106 mg/dL Assessment/Plan # Graves' disease with thyrotoxicosis # Sinus tachycardia # Type II NSTEMI # HTN # Coag negative staph - 1/2 bottles, consider contamination > pathologic infection Hx of Graves' disease diagnosed reportedly in 2019 now relapsed with presentation of thyrotoxicosis without storm. - Methimazole 10mg tid - Propranolol decrease to 10mg tid. - Free T4 daily - Follow up TRAb - Repeat TSH, free T4 in 4 weeks following discharge - Plan discussed with: Other (nurse) LOGAN ENCARNACION MD Feb 05, 2025 12:04
[2025-02-05] MEDS: PROPRANOLOL HCL 20 MG TAB PO SCH (14:19)
--- NOTE | 2025-02-05 14:51 | DVHPNRES ---
Progress Note Date Seen: Feb 05, 2025 Resident Creating Document: DONTE CALDWELL RESIDENT Medical Necessity Reason Pt with a Central, PICC or Fol: No Subjective Review of Systems This is a 34-year-old male, with past medical history of Graves disease (diagnosed in 2019, discontinued methimazole in 2022), presented to [facility] ED with complaint of chest pain and palpitations. Chest pain began on December 20, described as sharp, intermittent, rated 8/10 in intensity, and improves with rest. Patient reports several months of intermittent palpitations and chest discomfort, which have worsened over the past few days. His symptoms exacerbated while working outdoors in [place] under hot weather conditions, he experienced a sudden episode of heart racing and near-syncope, accompanied by chest pain. On evaluation in the ED, patient is afebrile, blood pressure is 146/88 mmHg. Initial labs show Troponin 152 and TSH 0.01. EKG shows sinus tachycardia. Chest X-ray shows no acute cardiopulmonary process . Patient is admitted for further evaluation and management. PMHx: Hyperthyroidism PSHx: No significant surgical history Social history: Denies smoking, alcohol, recreational drug use. Full code. Home medication: None Allergic history: No known allergies ROS: Constitutional: Denies weight loss, fever and chills. HEENT: Denies changes in vision and hearing. Respiratory: Denies shortness of breath and cough Cardiovascular: Chest pain, palpitations GI: Denies abdominal pain, nausea, vomiting and diarrhea. : Denies dysuria and urinary frequency. Musculoskeletal: Denies myalgias and joint pain Skin: Denies rash and pruritus. Neurological: Denies dizziness, headache, vision or hearing problems 02/05/2025: Was examined at bedside today. No new complaints. Blood culture was positive for Gram-positive cocci in cluster, another set ordered, pancultures ordered. Objective vital signs Vital Sign Date Time Temp Pulse Resp B/P (MAP) Pulse Ox O2 Delivery O2 Flow Rate FiO2 02/05/25 14:19 84 144/72 02/05/25 13:00 98.7 18 97 98.7 02/05/25 08:00 Room Air* 0 21 Total Intake and Output 02/04/25 02/04/25 02/05/25 15:00 23:00 07:00 Intake Total 250 ml 700 ml 600 ml Balance 250 ml 700 ml 600 ml medications Current Medications Medications Dose Ordered Sig/Uday Route Start Time Stop Time Status Last Admin Dose Admin Sodium Chloride 10 ml Q8HR IV 02/03/25 06:00 02/05/25 14:07 10 ML Ondansetron HCl 4 mg Q4HP PRN IV 02/02/25 23:45 Nitroglycerin 0.4 mg Q5MINP PRN SL 02/02/25 23:45 Aspirin 81 mg DAILY PO 02/03/25 10:00 02/05/25 09:32 81 MG Atorvastatin Calcium 40 mg HS PO 02/03/25 22:00 02/04/25 21:13 40 MG Methimazole 10 mg TID PO 02/03/25 14:00 02/05/25 14:21 10 MG Vancomycin HCl 0 ml @ 0 mls/hr PER PHARMACY IV 02/04/25 11:15 Vancomycin HCl 250 ml @ 200 mls/hr Q12H IV 02/05/25 11:00 02/05/25 10:43 200 MLS/HR Propranolol HCl 10 mg TID PO 02/05/25 14:00 02/05/25 14:19 10 MG Examination General: Patient alert and oriented in person, place and time. Patient following commands. HEENT: Normocephalic, atraumatic, moist mucous membranes Respiratory/pulmonary: Clear lungs bilaterally, vesicular murmurs present in almost all lung patel, no associated crackles or wheezes. Cardiovascular: Normal heart sounds S1 and S2 with no associated murmurs Abdomen: Abdomen nondistended, there is no pain to palpation in any of the abdominal quadrants, no palpable masses. Extremities: There is no peripheral edema present at the lower extremities. Peripheral Pulses: 3+ Radial (R). 3+ Radial (L). 3+ Dorsalis pedis (R). 3+ Dorsalis pedis(L) Skin: No rashes or pruritus, there is no sacral edema present at this time. Neurological: Intact cranial nerves with no focal neurologic deficits laboratory and microbiology Laboratory Tests 02/05/25 05:33 Test 02/05/25 05:33 Range/Units Serum Glucose 93 74-106 mg/dL Microbiology Date/Time Source Procedure Growth Status 02/04/25 06:48 Nose MRSA Screen - Final Complete 02/03/25 00:55 Blood Blood Culture - Preliminary NO GROWTH AFTER 48 HOURS OF INCUBATION. Resulted Problem List/Assessment/Plan Problem List/Assessment/Plan Thyrotoxicosis, secondary to Graves disease BWPS score 5 TSH 0.01, high Total T3, Free T4 Methimazole 10 mg PO TID Propranolol 20 mg p.o. b.i.d. Blood culture, urine culture Thyrotropin receptor antibody elevated Bacteremia, source unidentified IV vancomycin No MRSA detected nose. HIV, hep B, hep C negative, toxicology screen negative Echocardiogram negative for vegetations Repeat blood and pancultures ordered NSTEMI, likely type II due to hypothyroidism Sinus tachycardia due to above Troponin level, downtrending 152 -> 137 EKG: Sinus tachycardia BNP: 15.05 D-dimer normal Chest X-ray: no acute cardiopulmonary process Echocardiogram pending Nitroglycerin sublingual 0.4 mg Zofran 4 mg IV q4h Aspirin 81 MG p.o. Atorvastatin 40 mg p.o. Transaminitis Low HDL Elevated T total bilirubin, ALT Liver ultrasound shows no acute abnormality Hepatitis panel negative Asymptomatic hypercalcemia Trending calcium, EKG unremarkable DIET: Cardiac DVT PROPHYLAXIS: Ambulatory CODE STATUS: Goals of care discussed with patient at bedside for more than 16 minutes. Full code DISPOSITION: Telemetry Patient's status and plan discussed with the patient. Case discussed with Dr. Pretty Plan discussed with: Patient, Other (Nurses) My Orders My Orders Orders - DONTE CALDWELL Procedure Category Date Status Time Rapid Influenza A&B LAB 02/05/25 Logged 06:50 Covid19 Antigen Lissette LAB 02/05/25 Logged Urine Bacterial BELLE 02/05/25 Logged Culture 06:50 Respiratory Culture BELLE 02/05/25 Logged W/ Gs 06:50 Sputum Induction RT 02/05/25 Logged 06:50 Chlamydia/Gc LAB 02/05/25 Logged Amplification 06:50 Stool Bacterial BELLE 02/05/25 Uncollected Culture 07:01 Stool Wbc LAB 02/05/25 Logged 07:01 Electrocardigram EKG 02/05/25 Logged 11:12 Date of Service: Feb 05, 2025 Billing Provider: AILIN PRETTY MD Common Visit Codes: [id number] INP/OBS CARE(HIGH) DONTE CALDWELL RESIDENT Feb 05, 2025 14:51
[2025-02-06 05:00] VITALS: BP 114/67; PULSE 94; RESP 17; TEMP 98.1; O2SAT 99
[2025-02-06 06:22] LABS: Hematocrit 48.5 % (41.0-53.0); Hemoglobin 16.7 g/dL (13.5-17.5); Mean Corpuscular Hemoglobin 28.0 pg (28.0-32.0); Mean Corpuscular Volume 81.5 fL (80.0-100.0); Nucleated Red Blood Cells % 0.1 %
[2025-02-06 06:54] LABS: Albumin 4.4 g/dL (3.2-4.8); Anion Gap 14 (5-15); BUN/Creatinine Ratio 15.0 (10.0-20.0); Blood Urea Nitrogen 16 mg/dL (9-23); Carbon Dioxide 27 mmol/L (20-31); Glucose 100 mg/dL (74-106); Sodium 138 mmol/L (136-145); Total Protein 7.6 g/dL (5.7-8.2)
[2025-02-06 07:06] LABS: Alanine Aminotransferase 56 U/L (7-40); Alkaline Phosphatase 135 U/L (46-116); Bilirubin, Total 1.3 mg/dL (0.2-1.0); Calcium 10.9 mg/dL (8.7-10.4); Chloride 97 mmol/L (98-107); Potassium 3.5 mmol/L (3.5-5.1)
[2025-02-06 08:00] VITALS: PULSE 86
--- NOTE | 2025-02-06 08:15 | ECG ---
[facility] Test Date: 2025-02-05 Test Time: 12:26:21 Pat Name: STEPHANY BECERRA Department: Room: [facility]5T A Gender: M Plasterer Maintenance: : 1990 Requested By: DONTE CALDWELL Order Number: [id number] Reading MD: Turner Herrmann Measurements Intervals [place] Rate: 93 P: 52 AK: 201 QRS: 47 QRSD: 71 T: 14 QT: 333 QTc: 415 Interpretive Statements Sinus rhythm Borderline prolonged AK interval Probable left atrial enlargement Borderline T wave abnormalities ST elevation, consider inferior injury Electronically Signed On 02-06-2025 15:30:10 PDT by Turner Herrmann Please click the below link to view image of tracing.
[2025-02-06 09:00] VITALS: BP 111/70; PULSE 100; RESP 20; TEMP 98.6; O2SAT 98
[2025-02-06] MEDS ORDERED: PROP1TAB51 PO (11:00)
[2025-02-06] MEDS ORDERED: METH5TAB98 PO (11:00)
--- NOTE | 2025-02-06 11:53 | ECG ---
[facility] Test Date: 2025-02-02 Test Time: 19:52:39 Pat Name: STEPHANY BECERRA Department: Room: 0275T A Gender: M Professional Tutor: PH : 1990 Requested By: JI VAZQUEZ Order Number: [id number] Reading MD: Turner Herrmann Measurements Intervals [place] Rate: 116 P: 81 NC: 192 QRS: 66 QRSD: 76 T: 37 QT: 304 QTc: 423 Interpretive Statements Sinus tachycardia Probable left atrial enlargement RSR' in V1 or V2, probably normal variant Baseline wander in lead(s) II,III,aVF Electronically Signed On 02-06-2025 14:54:32 PDT by Turner Herrmann Please click the below link to view image of tracing.
[2025-02-06 13:23] VITALS: BP 114/67; PULSE 94; TEMP 37
--- NOTE | 2025-02-06 13:51 | DVHDSRES ---
Discharge Summary Date of Admission Resident Creating Document: DONTE CALDWELL RESIDENT Feb 02, 2025 at 23:40 Date of Discharge: Feb 06, 2025 Labs/Diagnostic Data: Laboratory Results Test 02/06/25 05:01 02/05/25 08:40 02/05/25 05:33 02/04/25 15:10 White Blood Count 11.0 10^3/uL (4.4-10.8) Red Blood Count 5.95 10^6/uL (4.5-5.90) Hemoglobin 16.7 g/dL (13.5-17.5) Hematocrit 48.5 % (41.0-53.0) Mean Corpuscular Volume 81.5 fL (80.0-100.0) Mean Corpuscular Hemoglobin 28.0 pg (28.0-32.0) Mean Corpuscular Hemoglobin Concent 34.4 g/dL (32.0-36.0) Red Cell Distribution Width 12.1 % (11.8-14.3) Platelet Count 285 10^3/uL (140-450) Mean Platelet Volume 10.0 fL (6.9-10.8) Neutrophils (%) (Auto) 56.4 % (37.0-80.0) Lymphocytes (%) (Auto) 30.0 % (10.0-50.0) Monocytes (%) (Auto) 11.6 % (0.0-12.0) Eosinophils (%) (Auto) 1.8 % (0.0-7.0) Basophils (%) (Auto) 0.2 % (0.0-2.0) Neutrophils # (Auto) 6.2 10 ^3/uL (1.6-8.6) Lymphocytes # (Auto) 3.3 10 ^3/uL (0.4-5.4) Monocytes # (Auto) 1.3 10 ^3/uL (0-1.3) Eosinophils # (Auto) 0.2 10 ^3/uL (0-0.8) Basophils # (Auto) 0 10 ^3/uL (0-0.2) Nucleated Red Blood Cells 0.1 % Sodium Level 138 mmol/L (136-145) Potassium Level 3.5 mmol/L (3.5-5.1) Chloride Level 97 mmol/L (98-107) Carbon Dioxide Level 27 mmol/L (20-31) Anion Gap 14 (5-15) Blood Urea Nitrogen 16 mg/dL (9-23) Creatinine 1.07 mg/dL (0.700-1.30) Glomerular Filtration Rate Calc 95 mL/min (>90) BUN/Creatinine Ratio 15.0 (10.0-20.0) Serum Glucose 100 mg/dL (74-106) Calcium Level 10.9 mg/dL (8.7-10.4) Total Bilirubin 1.3 mg/dL (0.2-1.0) Aspartate Amino Transferase (AST) 23 U/L (13-40) Alanine Aminotransferase (ALT) 56 U/L (7-40) Alkaline Phosphatase 135 U/L (46-116) Total Protein 7.6 g/dL (5.7-8.2) Albumin 4.4 g/dL (3.2-4.8) Free Thyroxine (T4) Calculated 4.71 ng/dL (0.89-1.76) Lactic Acid Level 1.3 mmol/L (0.4-2.0) HIV (1&2) Antibody Negative (Negative) Erythrocyte Sedimentation Rate 7 mm/hr (0-20) C-Reactive Protein High Sensitivity 0.15 mg/dL (<1.0) Lipase 100 U/L (12-53) Parathyroid Hormone (Intact) 22.1 pg/mL (18.4-80.1) Random Vancomycin Level 3.1 ug/mL (5-10) Thyroid Peroxidase Antibodies 14 IU/mL (0-34) Test 02/03/25 04:12 02/03/25 00:50 02/03/25 00:40 02/02/25 23:43 Hepatitis A IgM Antibody Negative Hepatitis B Surface Antigen Negative (Negative) Hepatitis B Core IgM Antibody Negative (Negative) Hepatitis C Antibody Negative (Negative) Magnesium Level 1.9 mg/dL (1.6-2.6) Direct Bilirubin 0.4 mg/dL (<0.3) Triglycerides Level 104 mg/dL (< 150) Cholesterol Level 97 mg/dL (< 200) LDL Cholesterol 44 mg/dL (< 100) HDL Cholesterol 37 mg/dL (40-59) Thyrotropin Receptor Antibody 13.10 IU/L (0.00-1.75) Urine Color Yellow (Yellow) Urine Clarity Clear (Clear) Urine pH 5.5 (5.0-9.0) Urine Specific [place] 1.030 (1.001-1.035) Urine Protein Negative (Negative) Urine Ketones Trace (Negative) Urine Blood Negative /uL (Negative) Urine Nitrite Negative (Negative) Urine Bilirubin Negative (Negative) Urine Urobilinogen Normal mg/dL (Negative) Urine Leukocyte Esterase Negative /uL (Negative) Urine RBC 4 /hpf (0 - 3) Urine Microscopic WBC < 1 /HPF (0-3) Urine Squamous Epithelial Cells None seen /hpf (<5) Urine Calcium Oxalate Crystals Few (None Seen) Urine Bacteria None seen /hpf (None Seen) Urine Glucose Normal mg/dL (Normal) Urine Opiates Screen Neg (NEGATIVE) Urine Fentanyl Screen Neg (NEGATIVE) Urine Barbiturates Screen Neg (NEGATIVE) Urine Phencyclidine Screen Neg (NEGATIVE) Urine Amphetamines Screen Neg (NEGATIVE) Urine Benzodiazepines Screen Neg (NEGATIVE) Urine Cocaine Screen Neg (NEGATIVE) Urine Cannabinoids Screen Neg (NEGATIVE) Troponin I High Sensitivity 137 ng/L (</=54) Test 02/02/25 19:57 D-Dimer, Quantitative 0.34 mg/L FEU (0.0-0.49) B-Type Natriuretic Peptide 15.05 pg/mL (0-100) Thyroid Stimulating Hormone (TSH) 0.01 uIU/mL (0.55-4.78) Total Triiodothyronine (TT3) 5.04 ng/mL (0.60-1.81) Other Laboratory Tests 02/06/25 05:01 Brief Hx & Hospital Course: History on admission: This is a 34-year-old male, with past medical history of Graves disease (diagnosed in 2019, discontinued methimazole in 2022), presented to [facility] ED with complaint of chest pain and palpitations. Chest pain began on December 20, described as sharp, intermittent, rated 8/10 in intensity, and improves with rest. Patient reports several months of intermittent palpitations and chest discomfort, which have worsened over the past few days. His symptoms exacerbated while working outdoors in [place] under hot weather conditions, he experienced a sudden episode of heart racing and near-syncope, accompanied by chest pain. Brief hospital course: Initial labs show Troponin 152 and TSH 0.01. EKG shows sinus tachycardia. Chest X-ray shows no acute cardiopulmonary process. Thyrotropin receptor antibody & liver ezymes elevated. Patient was started on methimazole and propranolol. Endocrinology was consulted, free T4 were monitored. Patient's blood culture were positive for Gram-positive cocci in clusters, patient was started on IV vancomycin. Further workup was done in another set of blood cultures were sent, which resulted negative. Patient's echocardiogram shows LVEF 60%, normal RV function resolved, no vegetations reported. MRSA nose screen was negative. Patient is stable for discharge and we will continue methimazole and propranolol and will follow up with endocrinology in outpatient clinic. Conditions treated during stay: Thyrotoxicosis, secondary to Graves disease NSTEMI, likely type II due to hypothyroidism Hypertension, Sinus tachycardia due to above Bacteremia, ruled out Endocarditis, ruled out Gram positive cocci in cluster positive blood culture likely due to contamination Transaminitis Low HDL Asymptomatic hypercalcemia Plan: Continue methimazole, propranolol t.i.d. Continue home medications Follow up in discharge clinic in 1-2 weeks Follow up with PCP in 1 week Follow up with Endocrinilogist in outpatient Operations or Procedures EXAM: Two-dimensional and M-mode echocardiogram with Doppler and color Doppler. Blood Pressure: 132/80 mmHg INDICATION Chest Pain RISK FACTORS Height: 6' 2", Weight: 221 DIMENSIONS LVDd 4.3 (3.8-5.7cm) LA (2D) 4.0 (1.9-4.0cm) Aortic Root 2.9 (2.0- 3.7cm) LVDs 3.1 (2.5-4.0cm) LA (MM) (1.9-4.0cm) Aortic Cusp Exc 1.7 (1.5- 2.0cm) EF (%) 56.0 (55-70%) Rt. Atrium 3.8 (1.9-4.0cm) Asc. Aorta cm IVSd 1.1 (0.7-1.1cm) RV (D) (1.8-2.4cm) PWd 1.1 (0.7-1.1cm) Mitral Valve Mitral Mitral Stenosis E wave 1.10m/s MV Mean GR. mmHg A wave 1.00m/s MV Peak GR. mmHg E/A ratio 1.1 2D MVA cm2 Aortic Valve Aortic Valve Aortic Stenosis V1 1.10m/s AO Mean GR. 4mmHg V2 1.40m/s AO Peak GR. 8mmHg LVOT Diameter 2.3 (1.8-2.4cm) Doppler JUSTO 3.26cm2 Pulmonic Valve V2 1.10m/s Tricuspid Valve TR Velocity 1.60m/s RVSP 15mmHg Conclusion lvef 60% normal rv function normal atria no severe valve abnormalities noted mild MVP, trace to mild mitral regug INDICATION: transaminitis TECHNIQUE: Multiple real-time sonographic images were obtained of the right upper quadrant. COMPARISON: None FINDINGS: The liver demonstrates homogenous echotexture without focal mass lesions. The liver measures 15 cm. There is no intrahepatic or extrahepatic ductal dilatation. The common duct measures 0.4 mm. The gallbladder is without evidence of stone or sludge. The gallbladder wall measures 0.3mm and is within normal limits. The right kidney measures 10 cm. The right kidney is normal in contour, size, and shape. The echogenicity is normal. There is no hydronephrosis. The pancreas is not well visualized due to overlying bowel gas. IMPRESSION: No sonographic evidence of gallstones or acute cholecystitis. CLINICAL HISTORY: cp TECHNIQUE: Single view of the chest was obtained. COMPARISON: None FINDINGS: The heart size and pulmonary vasculature are normal. The lungs are clear. IMPRESSION: NO ACUTE CARDIOPULMONARY PROCESS. Condition at Discharge: Stable Final Diagnosis/Problems List Thyrotoxicosis, secondary to Graves disease NSTEMI, likely type II due to hypothyroidism Hypertension, Sinus tachycardia due to above Bacteremia, ruled out Endocarditis, ruled out Gram positive cocci in cluster positive blood culture likely due to contamination Transaminitis Low HDL Asymptomatic hypercalcemia Discharge Disposition: Home Discharge Instruct/Medications Diet: Regular Activity: No Restrictions, As Tolerated Follow Up/Referral: Follow up in discharge clinic in 1-2 weeks Follow up with PCP in 1 week Follow up with Endocrinilogist in outpatient Medications: As per EHR New Medications: Propranolol HCl (Propranolol Hydrochloride) 10 Mg Tab 10 MG PO TID for 30 Days, #90 TAB Methimazole (Methimazole) 5 Mg Tab 10 MG PO TID for 30 Days, #180 TAB Scheduled Methimazole (Methimazole), 10 MG PO TID Propranolol HCl (Propranolol Hydrochloride), 10 MG PO TID Discharge Statement: "Patient was advised to return to the ER or call 911 if any headaches, dizziness, shortness of breath, chest pain, abdominal pain, bleeding, fevers, or worsening of medical condition. Patient was counseled about treatment plan, medications, possible side effects, patientverbalized understanding. All questions were answered to the best of my ability. This discharge took greater then 30 minutes in planning, reviewing documentation, counseling the patient, and discussing with other team members." ASSESSMENT ASSESSMENT Assessment Thyrotoxicosis, secondary to Graves disease NSTEMI, likely type II due to hypothyroidism Hypertension, Sinus tachycardia due to above Bacteremia, ruled out Endocarditis, ruled out Gram positive cocci in cluster positive blood culture likely due to contamination Transaminitis Low HDL Asymptomatic hypercalcemia Date of Service: Feb 06, 2025 Billing Provider: AILIN GALVIN MD Common Visit Codes: 47217-VHD/OBS DISCH DAY >30min DONTE CALDWELL RESIDENT Feb 06, 2025 13:51
== END 2025-02-06 15:03 | disposition home or self-care (01) | DRG 643 ==
LOC: ER 19:45 → OVERFLOW 23:40 → TELE-WESTW 02-03 18:13
PROVIDERS: ADMIT Internal Medicine Geriatric Medicine; ATTEND Internal Medicine Geriatric Medicine
DX: E05.00 Thyrotoxicosis with diffuse goiter without thyrotoxic crisis or storm (principal); I21.A1 Myocardial infarction type 2; I10 Essential (primary) hypertension; R74.01 Elevation of levels of liver transaminase levels; E83.52 Hypercalcemia; Z83.3 Family history of diabetes mellitus; Z79.899 Other long term (current) drug therapy; E03.9 Hypothyroidism, unspecified
CPT/HCPCS: 36415; 71045; 76705; 80048; 80053; 80061; 80074; 80076; 80202; 80307; 81001; 82310; 82565; 83605; 83690; 83735; 83880; 83970; 84436; 84439; 84443; 84480; 84484; 85025; 85379; 85652; 86141; 86376; 86703; 86800; 87040; 87077; 87081; 87186; 93005; 93306; 99291; G0378